=== PATIENT | female | born 1960 | race African-American/Black ===

== ENCOUNTER → 2017-06-01 | Outpatient (CLI) | payer BC ==
[2017-02-08 11:00] VITALS: BP 147/81
[~2017-06-01] MED LIST: ALPR0.5T PO; ALPR0.5T10 PO; ARIP2TAB3 PO; ASPI-482 PO; ASPI325T8 PO; BYSTOLIC5 MG PO; CARV40CP PO; CHOL2000 PO; CHOL500051 PO; CLON0.1T PO; CLON1PAT3 TD; CRESTOR20 MG PO; CRESTOR40 MG PO; Clonidine PO; ESOM40CA PO; ESOM40CA25 PO; ESTR0.62 PO; FENT1PAT91 TD; FLUO20CA16 PO; FLUO20TA11 PO; GLIM2TAB2 PO; LANS30CA PO; LISI40TA PO; LOVA40TA2 PO; METO-269 PO; MINO10TA PO; NIFE60TA PO; NIFE60TA16 PO; NITR0.4T22 SL; OLME1TAB25 PO; OMEG1CAP2 PO; OMEG1CAP27 PO; OXYC-327 PO; OXYC-328 PO; PRAS10TA9 PO; Percocet PO; REGADENOSON 0.4 MG/5 ML DISP.SYRIN. IV ONE; Valium; Vitamin D; [UNRECOGNIZED DRUG - OTHER] PO; progesterone cream TOP
--- NOTE | 2017-06-01 18:47 | RAD ---
APPROVED REPORT Test Type: Pharmacological Stress Nurse/Tech: Mag Donald R.N. Cardiac History: Family history, Hypertension, CAD, PTCA Medications: See Electronic Medical Record Medical History: See Electronic Medical Record Resting ECG: NSR with occ. PVC Resting Heart Rate: 57 bpm Resting Blood Pressure: 187/78mmHg Pretest Chest Pain: No chest pain Nurse/Tech Notes S1S2, lungs sound clear Consent: The procedure was explained to the patient in lay terms. Informed consent was witnessed. Anupam eout was entered into [employer]. History and Stress Test performed by Mag Donald R.N. Pharm. Details Pharmacologic stress testing was performed using 0.4mg per 5ml of regadenoson given intravenously ove r 7-10 seconds. Stress Symptoms Dyspnea POST EXERCISE Reason for Termination: Infusion complete Max HR: 103 bpm Max Blood Pressure: 206/101mmHg Blood Pressure response to exercise: Abnormal increase in blood pressure during stress. Chest Pain: No. Arrhythmia: No. ST Change: No. Imaging Protocol IMAGE PROTOCOL: Rest Tc-99m/stress Tc-99m 1 day Rest: Stress: Viability: Radiopharm.Tc99m IuiiaekjeUc10h Sestamibi Dose10.5mCi 32mCi Img Date 06/01/2017 06/01/2017 Inj-Img [id number]. 60min. Rest Admin Site:IV - Right HandAdministrator:MI Gardner, LORIT (R)(N) Stress Admin Site: IV - Right HandAdministrator: MI Gardner, ARRT (R)(N) STRESS DATA End Diast. Vol.78.0mlAv. Heart Rate82.0bpm End Syst. Vol.19.0mlCO Index BSA4.9L/min Myocardial Kkmp024.0gEject. Ufyjlpsd41.0% Stress Rates Pk. Fill Rate4.09EDV/secLVtime Pk. Fill 210.37msec Pk. Empty Rate4.83ESV/secLVtime Pk. Bfoeb666.55msec 09/07 Pk. Fill0.59EDV/sec Stress Scores Regional WT2.00Summed WT14.00 Regional WM0.00Summed WM1.00 LV Perf. Quant 17 Seg. SSS0.00 17 Seg. SRS0.00 17 Seg. SDS0.00 Stress Defect Extent (% LAD)0.00Rest Defect Extent (% LAD)0.00Rev. Defect Extent (% LAD)0.00 Stress Defect Extent (% LCX) 5.00Rest Defect Extent (% LCX)0.00Rev. Defect Extent (% LCX)5.00 Stress Defect Extent (% RCA)0.00Rest Defect Extent (% RCA)0.00Rev. Defect Extent (% RCA)0.00 Stress Defect Extent (% RHONDA)0.90Rest Defect Extent (% RHONDA)0.00Rev. Defect Extent (% RHONDA)0.90 Conclusion 1. No electrocardiographic changes just above myocardial ischemia with pharmacological stress. 2. No perfusion defects to suggest myocardial ischemia or scar. 3. Normal wall motion and wall thickening with an ejection fraction of 76%. 4. Scan indicates low risk for future cardiac events.
== END | disposition home or self-care (01) ==
LOC: NM 08:26
PROVIDERS: ATTEND Specialist
DX: I25.10 Atherosclerotic heart disease of native coronary artery without angina pectoris (principal); R07.9 Chest pain, unspecified
CPT/HCPCS: 78452; 93017; 96374; 96375; 96376; A9500; J2785

== ENCOUNTER → 2021-08-05 | Outpatient (CLI) | payer BC ==
[2019-05-23 11:27] VITALS: BP 162/78
[~2021-08-05] MED LIST changes: -GLIM2TAB2 PO; +GLIM2TAB7 PO; +LISI-130 PO; -LISI40TA PO; -NIFE60TA16 PO; +NIFE60TA90 PO; -OXYC-327 PO; -OXYC-328 PO; +OXYC1TAB19 PO; +OXYC1TAB22 PO; -REGADENOSON 0.4 MG/5 ML DISP.SYRIN. IV ONE
--- NOTE | 2021-08-06 08:27 | KCIC ---
EXAM: RENAL ULTRASOUND CLINICAL HISTORY: ACUTE KIDNEY INJURY COMPARISON: None available. TECHNIQUE: Ultrasound examination of the bilateral kidneys and urinary bladder was performed. FINDINGS: The right kidney measures 8.7 cm in bipolar length. The renal cortex is normal in thickness. Renal ec hogenicity is increased diffusely. There is no evidence for hydronephrosis, shadowing renal calculus or focal abnormality . The left kidney measures 9.3 cm in bipolar length. The renal cortex is normal in thickness. Renal ech ogenicity is normal. There is no evidence for hydronephrosis, shadowing renal calculus or focal abnor mality. Images of the partially filled urinary bladder are unremarkable. Bladder volume measures approximatel y 12.7 mL. IMPRESSION: Diffuse increased echogenicity of the right kidney may be seen with medical renal disease. No hydronephrosis Electronically signed by: Heriberto Temple MD (08/06/2021 8:25 AM) [id number]
== END ==
LOC: KCIC US 15:12
PROVIDERS: ATTEND Nurse Practitioner Adult Health
DX: N17.9 Acute kidney failure, unspecified (principal)
CPT/HCPCS: 76770